=== PATIENT | female | born 1960 | race Caucasian/White ===

== ENCOUNTER 2019-08-05 10:58 | Inpatient (IN) | payer BC, OTHER ==
[~2019-08-05] VITALS: Ht 177.8 cm; Wt 78.5 kg
--- NOTE | 2019-08-05 11:17 | NUR ---
ROLAN PARKER C/O AGRESSIVE BEHAVIOR, PT AWAKE, ALERT, -SOB ,NAD NOTED, VSS, PENDING MD MONROY
[2019-08-05] MEDS ORDERED: OLANZAPINE 5 MG TABLET ONE (11:18)
[2019-08-05] MEDS ORDERED: OLANZAPINE 5 MG TABLET PO ONE (11:30)
[2019-08-05 11:35] LABS: BASOPHILS % (AUTO) 0.5 % (0.0-2.0); EOSINOPHILS % (AUTO) 0.5 % (0.0-6.0); HEMATOCRIT 44 % (33-45); HEMOGLOBIN 14.8 g/dL (11.5-14.8); LYMPHOCYTES # (AUTO) 0.7 /CMM (0.8-4.8); LYMPHOCYTES % (AUTO) 10.3 % (20.0-44.0); MEAN CORPUSCULAR HGB CONC 34 g/dl (31.0-36.0); MEAN CORPUSCULAR VOLUME 90 fL (82-100); MONOCYTES # (AUTO) 0.5 /CMM (0.1-1.30); NEUTROPHILS # (AUTO) 5.6 /CMM (1.8-8.9); NEUTROPHILS % (AUTO) 80.7 % (43.0-81.0); PLATELET COUNT (AUTO) 397 /CMM (150-450); RED BLOOD CELL COUNT(AUTO) 4.84 MIL/uL (4.0-5.2); WHITE BLOOD COUNT (AUTO) 6.9 K/uL (4.3-11.0)
[2019-08-05 11:58] LABS: CALCIUM, SERUM 9.5 mg/dL (8.5-10.1); CARBON DIOXIDE 23 mmol/L (21-32); CHLORIDE 99 mmol/L (98-107); CREATININE 0.9 mg/dL (0.6-1.3); GLUCOSE 148 mg/dL (74-106); POTASSIUM 3.1 mmol/L (3.5-5.1); SODIUM SERUM 136 mmol/L (136-145); UREA NITROGEN, BLOOD 5 mg/dL (7-18)
[2019-08-05 12:02] LABS: ALANINE AMINOTRANSFERASE 17 U/L (12-78); ALBUMIN 4.3 g/dL (3.4-5.0); ALCOHOL, BLOOD < 3 mg/dL (0-0); ALKALINE PHOSPHATASE 104 U/L (46-116); ASPARTATE AMINOTRANSFERASE 12 U/L (15-37); BILIRUBIN,DIRECT 0.2 mg/dL (0.0-0.2); BILIRUBIN,TOTAL 0.8 mg/dL (0.2-1.0); TOTAL PROTEIN, SERUM 7.9 g/dL (6.4-8.2)
[2019-08-05 12:03] LABS: ACETAMINOPHEN 0 ug/ml (10-30); SALICYLATE 0.9 mg/dL (2.8-20.0)
--- NOTE | 2019-08-05 14:10 | NUR ---
CALLED NURSING SUP FOR [facility] B[facility]
--- NOTE | 2019-08-05 14:35 | NUR ---
REPORT GIVEN TO SANDRA MANTILLA FOR [facility] PT WILL BE TRANSPORTED TO [facility]
--- NOTE | 2019-08-05 14:47 | NUR ---
PT TRANSPORTED TO [facility]
[2019-08-05] MEDS ORDERED: TEMAZEPAM 7.5 MG CAPSULE PO PRN (15:30)
[2019-08-05] MEDS ORDERED: MAG HYDROX/AL HYDROX/SIMETH 30 ML UDC PO PRN (15:30)
[2019-08-05] MEDS ORDERED: ACETAMINOPHEN 325 MG TABLET PO PRN (15:30)
[2019-08-05] MEDS ORDERED: MAGNESIUM HYDROXIDE 30 ML UDC PO PRN (15:30)
[2019-08-05] MEDS ORDERED: BLOOD SUGAR DIAGNOSTIC 1 EACH STRIP IN ONE (15:30)
[2019-08-05] MEDS: LORAZEPAM 0.5 MG TABLET PO PRN (16:59)
[2019-08-05] MEDS ORDERED: OLANZAPINE 10 MG TABLET PO ONE (17:30)
[2019-08-05 18:10] VITALS: BP 124/61
--- NOTE | 2019-08-05 18:52 | NUR ---
SPANISH LECTURER NOTE: PATIENT IS A 58 YEAR OLD FEMALE ADMITTED TO [facility] ON A 5150 FOR DTS/GD. PER HOLD, PER HOLD, "TODAY YOU TRIED TO GO INTO THE SWIMMING POOL WITH A TELEVISION. YOU ARE UNABLE TO PROVIDE FOR YOUR FOOD DETENTION OR CLOTHING DUE TO YOUR MENTAL STATE." UPON FACE TO FACE ASSESSMENT, PATIENT IS ALERT AND ORIENTED X3. DISORGANIZED THOUGHTS. AGITATED. RESTLESS. UNKEMPT, DISHEVELED. CLEAR SPEACH. HYPERVERBALE, RAMBLING. PATIENT IS COOPERATIVE AT TIMES, GUARDED, ANXIOUS, RESTLESS, ATTENTION SEEKING. POOR IMPULSE CONTROL. ANXIOUS, LABILE. TANGENTIAL, FLIGHT OF IDEAS, DISORGANIZED. VSS. NO ACUTE DISTRESS NOTED. PATIENT DENIES SI/HI/VAH AT THIS TIME. DR VARGAS AND DR CHACON AWARE OF ADMISSION WITH PSYCHIATRIC ADMITTING ORDERS. VALUABLES TAKEN. BS CHECK DONE. SKIN INTACT. MRSA SWAB DONE. WILL ENDORSE TO FOLLOWING SHIFT TO OBTAIN URINE FOR LABS. WITH PATIENT AND AWARE OF ADMISSION. PATIENT HANDBOOK GIVEN WITH PATIENT'S RIGHTS AND GUIDE TO PRESCRIPTIONS. WILL CONTINUE TO MONITOR PATIENT Q15 MINUTES FOR SAFETY AND BEHAVIOR PER [facility].
[2019-08-05 20:11] VITALS: BP 132/78
[2019-08-05] MEDS ORDERED: POTASSIUM CHLORIDE 20 MEQ TAB.PRT.SR PO ONE (22:00)
[2019-08-05] MEDS: OLANZAPINE 5 MG TABLET PO SCH (22:31)
[2019-08-06 07:14] LABS: POTASSIUM 3.8 mmol/L (3.5-5.1)
[2019-08-06 07:20] LABS: CHOLESTEROL 119 mg/dL (<200); HDL CHOLESTEROL 49 mg/dL (40-60); LDL 59 mg/dL (0-99); TRIGLYCERIDES 106 mg/dL (30-150)
[2019-08-06 07:24] LABS: CALCIUM, SERUM 9.5 mg/dL (8.5-10.1); CREATININE 0.8 mg/dL (0.6-1.3)
[2019-08-06 07:31] LABS: ALBUMIN 3.9 g/dL (3.4-5.0); BILIRUBIN,TOTAL 0.8 mg/dL (0.2-1.0); TOTAL PROTEIN, SERUM 6.9 g/dL (6.4-8.2)
[2019-08-06 08:00] VITALS: BP 153/86
[2019-08-06] MEDS: LORAZEPAM 0.5 MG TABLET PO PRN ×2 (09:23→16:27)
[2019-08-06] MEDS: OLANZAPINE 5 MG TABLET PO SCH ×3 (09:24→21:02)
[2019-08-06 11:24] LABS: APPEARANCE,URINE SL CLOUDY (CLEAR); BILIRUBIN,URINE SMALL (NEGATIVE); BLOOD, URINE NEGATIVE Ery/uL (NEGATIVE); COLOR,URINE DARK YELLO (YELLOW); KETONES,URINE 40 (NEGATIVE); LEUKOCYTE ESTERASE ,URINE NEGATIVE (NEGATIVE); NITRITE, URINE NEGATIVE (NEGATIVE); PROTEIN,URINE NEGATIVE (NEGATIVE); UGLUCOSE NEGATIVE (NEGATIVE); UROBILINOGEN,URINE 0.2 EU/dL (0.2)
[2019-08-06 11:49] LABS: BACTERIA,URINE Rare /HPF (None Seen); RBC,URINE 0-2 /HPF (0-2); SQUAMOUS EPITHELIAL CELL,UR Moderate /HPF (None Seen)
--- NOTE | 2019-08-06 12:07 | NUR ---
Family Contact: SW called the pts , Allen Ruth ([phone]), and discussed the pts discharge plan as well as treatment plan. Pts expressed gratitude towards the staff and the care that was being provided to his . Pts confirmed some aspects of the pts psychosocial with the SW and then stated that he would like to have the pt return to their home and stated that he is looking into psychiatric care for the pt.
--- NOTE | 2019-08-06 12:11 | NUR ---
UR Note: Pt is authorized from 08/05-08/11 from [employer] ([phone]).
--- NOTE | 2019-08-06 13:06 | NUR ---
Initial Discharge Plan: Pt currently resides at her home with her located at [address] [place] [address]; ([phone]). Per pt, she would like to return to her home. SW will work with the pt and the MD regarding appropriate discharge planning. SW will form a safe and proper discharge plan.
--- NOTE | 2019-08-06 15:47 | NUR ---
GROUP NOTE: SW encouraged pt to participate in group therapy on this present day to discuss "discharge planning." Pt refused to attend as she is verbally aggressive and asked SW to leave her room. SW attempted to provided intervention and pt began yelling at SW.
[2019-08-06 16:00] VITALS: BP 124/52
[2019-08-06 20:51] VITALS: BP 141/82
[2019-08-07 08:00] VITALS: BP 149/73
[2019-08-07] MEDS: OLANZAPINE 5 MG TABLET PO SCH ×2 (08:52→16:20)
[2019-08-07] MEDS: LORAZEPAM 0.5 MG TABLET PO PRN ×2 (08:52→23:39)
[2019-08-07] MEDS: DIVALPROEX SODIUM 250 MG TABLET.DR PO SCH ×2 (14:00→16:20)
[2019-08-07 16:00] VITALS: BP 125/82
[2019-08-07 21:03] VITALS: BP 159/90
[2019-08-08 00:08] VITALS: BP 142/88
[2019-08-08 08:00] VITALS: BP 124/71
[2019-08-08] MEDS: OLANZAPINE 5 MG TABLET PO SCH ×2 (08:21→16:40)
[2019-08-08] MEDS: DIVALPROEX SODIUM 250 MG TABLET.DR PO SCH ×3 (08:21→16:40)
[2019-08-08] MEDS: LORAZEPAM 0.5 MG TABLET PO PRN (08:21)
--- NOTE | 2019-08-08 10:24 | NUR ---
Family Contact: Pts , Allen Ruth ([phone]), called the SW and he stated that he wanted an update. SW stated that the pts hold can be extended to a 14 day hold to allow the MD more time to stabilize the pt. He stated that he would appreciate that and has been pleased with the service the pt is receiving. He stated that the pt is missing a sweater that has been in the family for over 50 years. SW stated that she will assist in finding it and will keep him updated regarding the pts stay.
[2019-08-08 16:00] VITALS: BP 107/68
--- NOTE | 2019-08-08 16:29 | NUR ---
Probable Cause (PC) Hearing: SW called the pts , Allen Ruth ([phone]), and informed him that the pt is having her PC hearing tomorrow and informed him of all the possible outcomes. Pts stated that he will attend.
[2019-08-08 20:42] VITALS: BP 108/67
[2019-08-09 08:00] VITALS: BP 133/76
[2019-08-09] MEDS: DIVALPROEX SODIUM 250 MG TABLET.DR PO SCH ×2 (08:21→16:14)
[2019-08-09] MEDS: OLANZAPINE 5 MG TABLET PO SCH ×2 (08:22→16:15)
[2019-08-09 16:00] VITALS: BP 126/81
--- NOTE | 2019-08-09 19:30 | NUR ---
GPS RN NOTE, RECEIVED PATIENT AWAKE AND IN BED, NO S/S OR COMPLAINTS OF PAIN AT THIS TIME. PATIENT IS DISPLAYING NO S/S OF APPARENT DISTRESS AT THIS TIME. PATIENT BREATHING IS UNLABORED WITH EQUAL RISE AND FALL OF THE CHEST. PATIENT IS ALERT AND ORIENTED X 1-2 ON ROOM AIR WITH A SPO2 97%. PATIENT IS COMPLIANT WITH MEDICATIONS, CONFUSED, ANXIOUS AT TIMES, SUSPICIOUS, PARANOID, HYPERVERBAL, AND COOPERATIVE. PATIENT DENIES SUICIDAL AND HOMICIDAL IDEATIONS AT THIS TIME. PATIENT ASSISTED WITH TURNING AND REPOSITIONING Q2HR AND PRN FOR COMFORT AND CIRCULATION. PATIENT HAS NO NEEDS AT THIS TIME. PATIENT EDUCATED ON THE USE OF THE CALL BOSCH. PATIENT BED SIDE RAILS UP X 2 FOR SAFETY. PATIENT BED IS LOCKED, LOW, WITH BED ALARM ON. WILL CONTINUE TO MONITOR THIS PATIENT Q15 MINUTES WITH THE HELP OF STAFF TO MAINTAIN SAFETY.
[2019-08-09 20:39] VITALS: BP 144/76
[2019-08-10 08:00] VITALS: BP 131/79
[2019-08-10] MEDS: DIVALPROEX SODIUM 250 MG TABLET.DR PO SCH ×2 (09:11→18:01)
[2019-08-10] MEDS: OLANZAPINE 5 MG TABLET PO SCH ×2 (09:11→18:01)
[2019-08-10 16:00] VITALS: BP 143/53
--- NOTE | 2019-08-10 18:30 | NUR ---
QUIET,COOPERATIVE,MED COMPLIANT,STATES SHE IS UPSET ABOUT THE DX BI-POLAR.RN INSTRUCTED PT. TO TALK TO DR. CHACON TOMORROW.
--- NOTE | 2019-08-10 19:30 | NUR ---
[facility]PS RN NOTE, RECEIVED PATIENT AWAKE AND IN BED, NO S/S OR COMPLAINTS OF PAIN AT THIS TIME. PATIENT IS DISPLAYING NO S/S OF APPARENT DISTRESS AT THIS TIME. PATIENT BREATHING IS UNLABORED WITH EQUAL RISE AND FALL OF THE CHEST. PATIENT IS ALERT AND ORIENTED X 1-2 ON ROOM AIR WITH A SPO2 98%. PATIENT IS COMPLIANT WITH MEDICATIONS, CONFUSED, ANXIOUS AT TIMES, SUSPICIOUS, PARANOID, HYPERVERBAL, AND COOPERATIVE. PATIENT DENIES SUICIDAL AND HOMICIDAL IDEATIONS AT THIS TIME. PATIENT ASSISTED WITH TURNING AND REPOSITIONING Q2HR AND PRN FOR COMFORT AND CIRCULATION. PATIENT HAS NO NEEDS AT THIS TIME. PATIENT EDUCATED ON THE USE OF THE CALL BOSCH. PATIENT BED SIDE RAILS UP X 2 FOR SAFETY. PATIENT BED IS LOCKED, LOW, WITH BED ALARM ON. WILL CONTINUE TO MONITOR THIS PATIENT Q15 MINUTES WITH THE HELP OF STAFF TO MAINTAIN SAFETY.
[2019-08-10 20:54] VITALS: BP 124/63
[2019-08-11 08:00] VITALS: BP 135/88
[2019-08-11] MEDS: DIVALPROEX SODIUM 250 MG TABLET.DR PO SCH ×2 (08:16→17:37)
[2019-08-11] MEDS: OLANZAPINE 5 MG TABLET PO SCH (08:16)
[2019-08-11 16:00] VITALS: BP 138/81
[2019-08-11 20:51] VITALS: BP 136/91
[2019-08-11] MEDS: risperiDONE 1 MG TABLET PO SCH (21:31)
--- NOTE | 2019-08-12 06:40 | NUR ---
SKIN INTACT, NO NEW SKIN ISSUES. NO PICTURES TAKEN
[2019-08-12 08:00] VITALS: BP 135/69
[2019-08-12] MEDS: DIVALPROEX SODIUM 250 MG TABLET.DR PO SCH ×2 (08:37→16:40)
[2019-08-12] MEDS ORDERED: risperiDONE 1 MG TABLET PO SCH (09:00)
--- NOTE | 2019-08-12 11:26 | NUR ---
UR Note: SW called the [employer] line ([phone]) stating that a clinical is requested and that the SW will be asking for additional days and was told that the request was placed and that the SW will receive a call from a rn case manager hospice within 72 hours.
--- NOTE | 2019-08-12 15:18 | NUR ---
Family Contact: SW called the pts , Allen Ruth ([phone]), and informed him that the pt will be discharged in a few days due to the medication changes and the SW stated that she will keep him updated. He stated that the pt has been making progress and he will work with the MD.
--- NOTE | 2019-08-12 15:31 | NUR ---
UR Note: BRITNI called Marlene ([phone]), [employer] [facility] Options case resource manager, and left a detailed review on her voicemail and requested additional inpatient authorization.
[2019-08-12 16:00] VITALS: BP 101/52
[2019-08-12 20:48] VITALS: BP 146/78
[2019-08-12] MEDS: risperiDONE 1 MG TABLET PO SCH (21:24)
[2019-08-13 08:00] VITALS: BP 136/76
[2019-08-13] MEDS: DIVALPROEX SODIUM 250 MG TABLET.DR PO SCH ×2 (08:37→16:01)
[2019-08-13] MEDS: risperiDONE 1 MG TABLET PO SCH ×2 (08:38→21:29)
--- NOTE | 2019-08-13 11:09 | NUR ---
UR Note: Marlene ([phone]), [employer] Options counseling case manager, called the SW and stated that the pt is authorized until 08/15/19.
--- NOTE | 2019-08-13 15:12 | NUR ---
Family Contact: Pts , Allen Ruth ([phone]), called the SW and stated that he would like an update on the pts case. SW stated that the MD made another medication change and that the insurance company authorized the pt to be in the hospital until Monday. SW stated that she will keep him informed about the pts discharge.
--- NOTE | 2019-08-13 15:36 | NUR ---
GROUP NOTE: SW encouraged pt to participate in group on this present day discussing "positive coping skills." Pt refused to participate stating she wanted to stay in her room. SW attempted to provide intervention and pt responded with "no thanks you can leave now." Pts mood continues to be unstable and remains with impaired insight and judgement.
[2019-08-13 16:00] VITALS: BP 140/78
[2019-08-13 20:00] VITALS: BP 130/78
[2019-08-13 20:27] VITALS: BP 130/78
[2019-08-14 08:00] VITALS: BP 136/87
[2019-08-14] MEDS: risperiDONE 1 MG TABLET PO SCH ×2 (08:50→21:22)
[2019-08-14] MEDS: DIVALPROEX SODIUM 250 MG TABLET.DR PO SCH ×2 (08:50→16:47)
--- NOTE | 2019-08-14 10:48 | NUR ---
Family Contact: Pts , Allen Ruth ([phone]), called the SW and asked about aftercare for the pt once she is discharged from the hospital. SW stated that the hospital does not conduct a follow up unless there is substance abuse which there is for the pt. SW stated that the pt can receive aftercare through her insurance company and the pts stated that he will call [facility].
--- NOTE | 2019-08-14 15:25 | NUR ---
Group Note: SW encouraged pt to participate in group on 08/14/19 discussing discharge planning. Pt refused to participate stating she wanted to stay in her room. SW attempted to provide intervention and pt responded with "no thanks you can leave now." Pt screamed that she knew that she was going to going back to her home. Pts mood continues to be unstable and remains with impaired insight and judgement.
[2019-08-14 16:00] VITALS: BP 112/72
[2019-08-14 19:45] VITALS: BP 117/71
[2019-08-14 20:00] VITALS: BP 117/71
--- NOTE | 2019-08-15 00:54 | NUR ---
[facility]PS RN NOTE PATIENT IS SLEEPING AT THIS TIME. CALM, RELAXED. WILL CONTINUE TO MONITOR FOR ANY CHANGES. NO PRN MEDICINE NEEDED.
[2019-08-15 08:00] VITALS: BP 127/71
[2019-08-15] MEDS: DIVALPROEX SODIUM 250 MG TABLET.DR PO SCH ×2 (08:22→17:08)
[2019-08-15] MEDS: risperiDONE 1 MG TABLET PO SCH ×2 (08:23→21:36)
--- NOTE | 2019-08-15 09:27 | NUR ---
Family Contact: Pts , Allen Ruth ([phone]), called the SW and the SW informed him that the pt will be discharged the following day. He stated that he would like to pick the pt up at 12pm. SW stated that she will arrange the discharge for that time.
--- NOTE | 2019-08-15 11:19 | NUR ---
Substance Abuse Intervention: SW conducted a substance abuse intervention with the pt regarding her daily cannabis use.
[2019-08-15 16:00] VITALS: BP 132/62
[2019-08-15 20:37] VITALS: BP 129/78
[2019-08-15 22:45] VITALS: BP 132/62
[2019-08-16 08:00] VITALS: BP 122/70
[2019-08-16] MEDS: DIVALPROEX SODIUM 250 MG TABLET.DR PO SCH (08:26)
[2019-08-16] MEDS: risperiDONE 1 MG TABLET PO SCH (08:26)
--- NOTE | 2019-08-16 11:10 | NUR ---
SENIOR SYSTEMS ARCHITECT NOTE: PATIENT IS A 58 YEAR OLD FEMALE DISCHARGED TO HOME [address] [place] [address]. PATIENT IS IN STABLE CONDITION. VSS. NO ACUTE DISTRESS NOTED. NO COMPLAINTS. COMPLIANT WITH MEDICATION MANAGEMENT. COOPERATIVE WITH PLAN OF CARE. PSYCHIATRIC TREATMENT PLANS MET. MEDICAL TREATMENT PLANS DEFERRED FOR CONTINUAL MONITORING. DENIES SI/HI VAH AT THE TIME OF DISCHARGE. SKIN INTACT. EDUCATED PATIENT ABOUT AFTERCARE WITH COPY PROVIDED. RETURNED PERSONAL BELONGINGS TO PATIENT. MEDICATIONS RECONCILED WITH REINIER ROBBINS AND DR CHACON ALONG WITH PSYCHIATRIC DISCHARGE ORDERS. DISCHARGE PAPERWORK SIGNED. FOR FOLLOW UP WITH PSYCHIATRIST AND [employer] SALESPERSON WITHIN 1 WEEK. PATIENT LEFT THE [facility] VIA PRIVATE TRANSPORT AT 1105.
--- NOTE | 2019-08-16 13:24 | NUR ---
Discharge Note: Pt was discharged to her home located at [address] [place] [id number]; ([phone]). Pts , Allen Ruth ([phone]), was picked up the pt around 12pm. Upon discharge, the pt appeared to be in a euthymic mood and presented with a distressed affect. Pt denied both suicidal and homicidal ideation as well as auditory and visual hallucinations. Pt will be under the care of her psychiatrist, Dr. Caroline Mustafa, located at [address] [place] [address], [phone]; and a fax of records was sent to [phone]. Pt has an appointment on 08/21/19. Pt will be under the care of her director behavioral health as well at [facility] [place] located at [address] [place] [id number]; .
== END 2019-08-16 11:05 | disposition home or self-care (01) | DRG 885 ==
LOC: ER 11:02 → GPS 14:18
PROVIDERS: ADMIT Psychiatry & Neurology Psychiatry; ATTEND Hospitalist
DX: F31.2 Bipolar disorder, current episode manic severe with psychotic features (principal); F23 Brief psychotic disorder; E87.6 Hypokalemia; F12.90 Cannabis use, unspecified, uncomplicated; Z73.6 Limitation of activities due to disability; T14.91XA Suicide attempt, initial encounter; Y93.89 Activity, other specified; Y92.009 Unspecified place in unspecified non-institutional (private) residence as the place of occurrence of the external cause
CPT/HCPCS: 36415; 70450-TC; 80048-TC; 80053-TC; 80061-TC; 80076-TC; 80164-TC; 80305; 81000-TC; 82962-TC; 85025-TC; 87081-TC; G0480